=== PATIENT | female | born 1995 | race Hispanic/Latino ===

== ENCOUNTER 2019-12-08 11:12 | Inpatient (IN) | payer BC, OTHER ==
[~2019-12-08] VITALS: Ht 167.6 cm; Wt 175.5 kg
[2019-12-08] MEDS ORDERED: SODIUM CHLORIDE 0.9% 1000ML 1,000 ML IV STA ×2 (11:38→15:34)
[2019-12-08] MEDS ORDERED: KETOROLAC TROMETHAMINE 30 MG/ML VIAL IV STA (11:38)
[2019-12-08] MEDS ORDERED: ONDANSETRON HCL INJ 2MG/ML 2ML 2 MG/ML VIAL IV STA (11:38)
[2019-12-08] MEDS ORDERED: PANTOPRAZOLE 40 MG 10ML VIAL IV STA (11:38)
[2019-12-08] MEDS ORDERED: LIDOCAINE VISC 2% SOLN 15 ML UDC PO ONE ×2 (11:45→15:30)
[2019-12-08] MEDS ORDERED: MAGNESIUM/ALUMINUM/SIMETHICONE 30 ML UDC PO ONE ×2 (11:45→15:30)
[2019-12-08] MEDS ORDERED: BELLADONNA ALK/PHENOBARBITAL 5 ML UDC PO ONE ×2 (11:45→15:30)
--- NOTE | 2019-12-08 11:45 | Emergency Department Note ---
History of Present Illnes History of Present Illness Chief Complaint: Abdominal Complaints History of Present Illness This is a 24 year old female . Historian: Significant Other Arrival Mode: Car Onset (how long ago): day(s) (las night) Timing of current episode: intermittent Progression: worsening Context: recent illness, recent surgery, recent immobilization, recent travel, trauma/injury, new medications, hx of DVT/PE, non-compliance w/ medications, other Relieving factors: none Exacerbating factors: none Treatments prior to arrival: none Past Medical/Family History Physician Review I have reviewed the patient's past medical and family history. Any updates have been documented here. Past Medical History Recent Fever: No Clinical Suspicion of Infectio: No New/Unexplained Change in Ment: No Past Medical History: GERD Other Medical History: SEVERE MORBID OBESITY Past Surgical History: None Social History Smoking Cessation: Never Smoker Alcohol Use: None Any Illegal Drug Use: No TB Exposure/Symptoms: No Physically hurt or threatened: No Family History Family history of heart diseas: No Other Last Tetanus: UNK Any Pre-Existing Lines (PICC,: No Review of Systems Review of Systems Constitutional: no symptoms EENTM: no symptoms Cardiovascular: no symptoms Respiratory: no symptoms Gastrointestinal: abdominal pain, vomiting Genitourinary: no symptoms Musculoskeletal: no symptoms Neurological: no symptoms Psychological: no symptoms Endocrine: no symptoms Hematological/Lymphatic: no symptoms Review of other systems All other systems reviewed and negative. Physical Exam Related Data Allergies: Coded Allergies: No Known Allergies (Unverified , 12/08/19) Triage Vital Signs Vital Signs Date Time Temp Pulse Resp B/P (MAP) Pulse Ox O2 Delivery O2 Flow Rate FiO2 12/08/19 11:35 97.9 90 18 130/90 100 Vital signs reviewed: Yes Physical Exam CONSTITUTIONAL Constitutional: obese HENT HENT: normocephalic, atraumatic, oropharynx clear/moist, nose normal HENT L/R: left ext ear normal, right ext ear normal EYES Eyes: PERRL, conjunctivae normal NECK Neck: ROM normal PULMONARY Pulmonary: effort normal, breath sounds normal CARDIOVASCULAR Cardiovascular: regular rhythm, heart sounds normal, capillary refill normal, normal rate GASTROINTESTINAL Abdominal: soft; nontender (minimal epigastric ruq ttp); bowel sounds normal; left CVA tenderness, right CVA tenderness GENITOURINARY Genitourinary: exam deferred SKIN Skin: warm, dry MUSCULOSKELETAL Musculoskeletal: ROM normal NEUROLOGICAL Neurological: alert, oriented x 3, no gross motor or sensory deficits PSYCHOLOGICAL Psychological: mood/affect normal, judgement normal Results Laboratory Laboratory Laboratory Tests Test 12/08/19 14:09 12/08/19 11:40 12/08/19 11:38 Sodium Level 140 mmol/L (136-145) Potassium Level 3.9 mmol/L (3.5-5.1) Chloride Level 105 mmol/L (98-107) Carbon Dioxide Level 23 mmol/L (22-29) Anion Gap 15.9 mmol/L (8-16) Blood Urea Nitrogen 11 mg/dL (7-26) Creatinine 0.72 mg/dL (0.57-1.11) Estimat Glomerular Filtration Rate > 60 ML/MIN (60-) BUN/Creatinine Ratio 15 (6-25) Glucose Level 136 mg/dL (74-118) Calcium Level 9.6 mg/dL (8.4-10.2) Total Bilirubin 1.9 mg/dL (0.2-1.2) Aspartate Amino Transf (AST/SGOT) 117 IU/L (5-34) Alanine Aminotransferase (ALT/SGPT) 577 IU/L (0-55) Alkaline Phosphatase 135 IU/L (40-150) Total Protein 7.7 g/dL (6.5-8.1) Albumin 3.8 g/dL (3.5-5.0) Globulin 3.9 g/dL (2.3-3.5) Albumin/Globulin Ratio 1.0 (0.8-2.0) Amylase Level 906 U/L (25-125) Lipase 1833 U/L (8-78) Human Chorionic Gonadotropin, Qual Negative (NEGATIVE) White Blood Count 18.84 x10e3/uL (4.8-10.8) Red Blood Count 5.57 x10e6/uL (3.6-5.1) Hemoglobin 16.5 g/dL (12.0-16.0) Hematocrit 49.4 % (34.2-44.1) Mean Corpuscular Volume 88.7 fL (81-99) Mean Corpuscular Hemoglobin 29.6 pg (28-32) Mean Corpuscular Hemoglobin Concent 33.4 g/dL (31-35) Red Cell Distribution Width 13.1 % (11.7-14.4) Platelet Count 301 x10e3/uL (140-360) Neutrophils (%) (Auto) 89.3 % (38.7-80.0) Lymphocytes (%) (Auto) 5.3 % (18.0-39.1) Monocytes (%) (Auto) 4.8 % (4.4-11.3) Eosinophils (%) (Auto) 0.0 % (0.0-6.0) Basophils (%) (Auto) 0.2 % (0.0-1.0) Neutrophils # (Auto) 16.8 (2.1-6.9) Lymphocytes # (Auto) 1.0 (1.0-3.2) Monocytes # (Auto) 0.9 (0.2-0.8) Eosinophils # (Auto) 0.0 (0.0-0.4) Basophils # (Auto) 0.0 (0.0-0.1) Absolute Immature Granulocyte (auto 0.07 x10e3/uL (0-0.1) Urine Color [place] (YELLOW) Urine Clarity Cloudy (CLEAR) Urine pH 5.5 (5 - 7) Urine Specific Summers >=1.030 (1.010-1.025) Urine Protein 1+ (NEGATIVE) Urine Glucose (UA) 1+ (NEGATIVE) Urine Ketones 2+ (NEGATIVE) Urine Blood Negative (NEGATIVE) Urine Nitrite Negative (NEGATIVE) Urine Bilirubin Moderate (NEGATIVE) Urine Urobilinogen 0.2 mg/dL (0.2 - 1) Urine Leukocyte Esterase Negative (NEGATIVE) Urine RBC None /HPF (0-5) Urine WBC 0-5 /HPF (0-5) Urine Epithelial Cells Rare /LPF (NONE) Urine Amorphous Sediment Many (FEW) Urine Bacteria Many /HPF (NONE) Laboratory Tests Test 12/08/19 14:09 12/08/19 11:40 12/08/19 11:38 Sodium Level 140 mmol/L (136-145) Potassium Level 3.9 mmol/L (3.5-5.1) Chloride Level 105 mmol/L (98-107) Carbon Dioxide Level 23 mmol/L (22-29) Anion Gap 15.9 mmol/L (8-16) Blood Urea Nitrogen 11 mg/dL (7-26) Creatinine 0.72 mg/dL (0.57-1.11) Estimat Glomerular Filtration Rate > 60 ML/MIN (60-) BUN/Creatinine Ratio 15 (6-25) Glucose Level 136 mg/dL (74-118) Calcium Level 9.6 mg/dL (8.4-10.2) Total Bilirubin 1.9 mg/dL (0.2-1.2) Aspartate Amino Transf (AST/SGOT) 117 IU/L (5-34) Alanine Aminotransferase (ALT/SGPT) 577 IU/L (0-55) Alkaline Phosphatase 135 IU/L (40-150) Total Protein 7.7 g/dL (6.5-8.1) Albumin 3.8 g/dL (3.5-5.0) Globulin 3.9 g/dL (2.3-3.5) Albumin/Globulin Ratio 1.0 (0.8-2.0) Amylase Level 906 U/L (25-125) Human Chorionic Gonadotropin, Qual Negative (NEGATIVE) White Blood Count 18.84 x10e3/uL (4.8-10.8) Red Blood Count 5.57 x10e6/uL (3.6-5.1) Hemoglobin 16.5 g/dL (12.0-16.0) Hematocrit 49.4 % (34.2-44.1) Mean Corpuscular Volume 88.7 fL (81-99) Mean Corpuscular Hemoglobin 29.6 pg (28-32) Mean Corpuscular Hemoglobin Concent 33.4 g/dL (31-35) Red Cell Distribution Width 13.1 % (11.7-14.4) Platelet Count 301 x10e3/uL (140-360) Neutrophils (%) (Auto) 89.3 % (38.7-80.0) Lymphocytes (%) (Auto) 5.3 % (18.0-39.1) Monocytes (%) (Auto) 4.8 % (4.4-11.3) Eosinophils (%) (Auto) 0.0 % (0.0-6.0) Basophils (%) (Auto) 0.2 % (0.0-1.0) Neutrophils # (Auto) 16.8 (2.1-6.9) Lymphocytes # (Auto) 1.0 (1.0-3.2) Monocytes # (Auto) 0.9 (0.2-0.8) Eosinophils # (Auto) 0.0 (0.0-0.4) Basophils # (Auto) 0.0 (0.0-0.1) Absolute Immature Granulocyte (auto 0.07 x10e3/uL (0-0.1) Urine Color [place] (YELLOW) Urine Clarity Cloudy (CLEAR) Urine pH 5.5 (5 - 7) Urine Specific [place] >=1.030 (1.010-1.025) Urine Protein 1+ (NEGATIVE) Urine Glucose (UA) 1+ (NEGATIVE) Urine Ketones 2+ (NEGATIVE) Urine Blood Negative (NEGATIVE) Urine Nitrite Negative (NEGATIVE) Urine Bilirubin Moderate (NEGATIVE) Urine Urobilinogen 0.2 mg/dL (0.2 - 1) Urine Leukocyte Esterase Negative (NEGATIVE) Urine RBC None /HPF (0-5) Urine WBC 0-5 /HPF (0-5) Urine Epithelial Cells Rare /LPF (NONE) Urine Amorphous Sediment Many (FEW) Urine Bacteria Many /HPF (NONE) Lab results reviewed: Yes Imaging Impressions IMPRESSION: No acute cardiopulmonary process identified. Signed by: Dr. Jeffry Meadows MD on 12/08/2019 2:33 PM IMPRESSION: Cholelithiasis without sonographic evidence for acute cholecystitis. Signed by: Dr. Jeffry Meadows MD on 12/08/2019 1:00 PM IMPRESSION: 1. CT findings suggestive of acute pancreatitis including edematous appearing pancreas with adjacent inflammatory change. Recommend correlation with symptomatology and laboratory evaluation. No evidence for organized fluid collection or abnormal enhancement to suggest necrosis. 2. Cholelithiasis without evidence for acute cholecystitis. Signed by: Dr. Jeffry Meadows MD on 12/08/2019 5:10 PM Dictated By: JEFFRY MEADOWS MD 171 Transcribed By: MATTHIAS on 12/08/19 1710 Critical Care Time Subsequent provider I assumed direction of critical care for this patient from another provider of my specialty. Assessment & Plan Reassessment Reassessment time: 11:44 Reassessment 24y f presented to ed c/o ruq pain sent from md office for r/o gb stone- lab us ordered - pt medicated w/ zofran ns protonix toradol gi cocktail Assessment & Plan Final Impression: (1) Pancreatitis, gallstone Assessment & Plan discussed lab us results plan of care and need for admit spoke w/ Dr Carpenter will admit spoke w/ Dr Rivera / Inge Montelongo will consult Depart Disposition: ADMITTED Last Vital Signs Date Time Temp Pulse Resp B/P (MAP) Pulse Ox O2 Delivery O2 Flow Rate FiO2 12/08/19 11:35 97.9 90 18 130/90 100 NIKKY PIKE Dec 08, 2019 11:45
[2019-12-08 12:22] LABS: BASOPHILS % 0.2 % (0.0-1.0); HEMATOCRIT 49.4 % (34.2-44.1); HEMOGLOBIN 16.5 g/dL (12.0-16.0); LYMPHOCYTES % 5.3 % (18.0-39.1); MEAN CORPUSCULAR HEMOGLOBIN 29.6 pg (28-32); MEAN CORPUSCULAR HGB CONC 33.4 g/dL (31-35); MEAN CORPUSCULAR VOLUME 88.7 fL (81-99); MONOCYTES # (AUTO) 0.9 (0.2-0.8); MONOCYTES % 4.8 % (4.4-11.3); NEUTROPHILS # (AUTO) 16.8 (2.1-6.9); NEUTROPHILS % 89.3 % (38.7-80.0); PLATELET COUNT 301 x10e3/uL (140-360); RED BLOOD COUNT 5.57 x10e6/uL (3.6-5.1); RED CELL DISTRIBUTION WIDTH 13.1 % (11.7-14.4)
[2019-12-08 12:33] LABS: CLARITY,URINE CLOUDY (CLEAR); COLOR,URINE ORANGE (YELLOW)
[2019-12-08 12:34] LABS: LEUKOCYTE ESTERASE ,URINE NEGATIVE (NEGATIVE); NITRITE,URINE NEGATIVE (NEGATIVE); PROTEIN,URINE DIPSTICK 1+ (NEGATIVE)
[2019-12-08 12:35] LABS: BILIRUBIN,URINE MODERATE (NEGATIVE); KETONES,URINE 2+ (NEGATIVE); URINE UROBILINOGEN 0.2 mg/dL (0.2 - 1)
[2019-12-08 12:46] LABS: AMORPHOUS SEDIMENT,URINE MANY (FEW); BACTERIA,URINE MANY /HPF; EPITHELIAL CELLS,URINE RARE /LPF; WBC,URINE (MAN) 0-5 /HPF (0-5)
--- NOTE | 2019-12-08 13:03 | Diagnostic Imaging Report ---
EXAM: US GALLBLADDER DATE: 12/08/2019 12:21 PM INDICATION: Abdominal pain COMPARISON: None FINDINGS: The pancreas is partially obscured by bowel gas. The visualized portion appears unremarkable. The liver is normal in size measuring 15.3 cm in length. Hepatic echogenicity is within normal limits. The main portal vein is patent with antegrade flow and diameter of 0.8 cm, within normal limits. Multiple shadowing stones are identified within the gallbladder, limiting sonographic evaluation. No obvious gallbladder wall thickening or pericholecystic fluid is appreciated. There is no intra or extra hepatic biliary ductal dilatation. The common bile duct measures 4 mm. Sonographic Parra's sign is negative. The right kidney is normal in size measuring 9.5 cm in length with normal cortical thickness/echogenicity. There is no evidence for solid renal mass, hydronephrosis, or shadowing calculi within the right kidney. The visualized portions the IVC and aorta are within normal limits. There is no ascites visualized within the right upper quadrant. IMPRESSION: Cholelithiasis without sonographic evidence for acute cholecystitis. Signed by: Dr. Jeffry Meadows MD on 12/08/2019 1:00 PM
--- NOTE | 2019-12-08 14:37 | Diagnostic Imaging Report ---
EXAM: CHEST SINGLE (NOT PORTABLE) DATE: 12/08/2019 2:15 PM INDICATION: Abdominal pain COMPARISON: None FINDINGS: The trachea is midline. The lungs are symmetrically expanded without evidence for large focal consolidation, pneumothorax, or significant pleural effusion. The cardiomediastinal silhouette and pulmonary vasculature are within normal limits. No acute osseous abnormality is identified. The surrounding soft tissues are unremarkable. IMPRESSION: No acute cardiopulmonary process identified. Signed by: Dr. Jeffry Meadows MD on 12/08/2019 2:33 PM
[2019-12-08 14:51] LABS: ALANINE AMINOTRANSFERASE 577 IU/L (0-55); ALBUMIN 3.8 g/dL (3.5-5.0); ALKALINE PHOSPHATASE 135 IU/L (40-150); AMYLASE 906 U/L (25-125); ANION GAP 15.9 mmol/L (8-16); BLOOD UREA NITROGEN 11 mg/dL (7-26); BUN/CREATININE RATIO 15 (6-25); CALCIUM 9.6 mg/dL (8.4-10.2); CARBON DIOXIDE 23 mmol/L (22-29); CHLORIDE 105 mmol/L (98-107); CREATININE, SERUM 0.72 mg/dL (0.57-1.11); EST GLOMERULAR FILTRATION RATE > 60 ML/MIN (60-); GLUCOSE 136 mg/dL (74-118); POTASSIUM 3.9 mmol/L (3.5-5.1); SODIUM 140 mmol/L (136-145)
--- NOTE | 2019-12-08 14:54 | NUR ---
PATIENT TO ROOM 9
[2019-12-08] MEDS ORDERED: SODIUM CHLORIDE 0.9% 1000ML 1,000 ML IV ONE (15:30)
[2019-12-08] MEDS ORDERED: MORPHINE SULFATE 2 MG/ML SYR 1ML IV PRN (15:30)
[2019-12-08] MEDS ORDERED: SODIUM CHLORIDE 0.9% 1000ML 1,000 ML IV SCH (15:30)
[2019-12-08] MEDS ORDERED: PIPER-TAZ 3.375 GM 50 ML IV ONE (15:30)
[2019-12-08] MEDS ORDERED: PANTOPRAZOLE 40 MG 10ML VIAL IV ONE (15:30)
[2019-12-08] MEDS ORDERED: KETOROLAC TROMETHAMINE 30 MG/ML VIAL IV ONE (15:30)
[2019-12-08] MEDS ORDERED: ONDANSETRON HCL INJ 2MG/ML 2ML 2 MG/ML VIAL IV ONE (15:30)
[2019-12-08 16:30] LABS: LIPASE 1833 U/L (8-78)
[2019-12-08] MEDS ORDERED: PIPER-TAZ 3.375 GM 50 ML ONE (16:58)
[2019-12-08] MEDS ORDERED: SODIUM CHLORIDE 0.9% 50ML 50 ML ONE (17:13)
[2019-12-08] MEDS ORDERED: IOPAMIDOL 370 MG/ML 200 ML INFUS..BTL INJ ONE (17:13)
--- NOTE | 2019-12-08 17:13 | Diagnostic Imaging Report ---
CT of the abdomen and pelvis, with contrast. History: Abdominal pain. Comparison: Gallbladder ultrasound from earlier 12/08/2019. Technique: Multidetector CT scanning of the abdomen and pelvis was performed from the level of the lung bases to the inferior pubic rami after intravenous administration of contrast. Coronal and sagittal multiplanar reformations were obtained. RADIATION DOSE: Total DLP: 1366.97 mGy*cm Dose modulation, iterative reconstruction, and/or weight based adjustment of the mA/kV was utilized to reduce the radiation dose to as low as reasonably achievable. FINDINGS: Please note that examination is limited secondary the patient's body habitus. The visualized lungs are clear. The imaged portion of the heart demonstrates no significant abnormalities. The liver is normal in size and attenuation. The gallbladder appears contracted and contains calcified stones. There is no evidence for gallbladder wall thickening or pericholecystic fluid. There is no biliary ductal dilatation. The spleen and bilateral adrenal glands are unremarkable. The pancreas appears prominent with adjacent fat stranding changes seen in the setting of acute pancreatitis. There is no evidence for organized fluid collection or abnormal enhancement to suggest necrosis. No pancreatic ductal dilatation appreciated. Upper normal sized mesenteric lymph nodes are noted within the upper abdomen, likely reactive. The kidneys are normal in size and location and enhance symmetrically. There is no evidence for hydronephrosis. The ureters are normal course and caliber. The urinary bladder demonstrates no significant abnormalities. The uterus and adnexa are grossly unremarkable. The abdominal aorta is normal course and caliber. The IVC is unremarkable. Please note evaluation the bowel is limited without the use of enteric contrast material. The stomach is unremarkable. There is mild wall thickening of the duodenum adjacent to the pancreas which is likely reactive. The remaining visualized loops of small and large bowel demonstrate no evidence of obstruction or inflammation. There is no ascites or intraperitoneal free air. No abnormally enlarged lymph nodes are identified within the abdomen and pelvis. The osseous structures demonstrate no evidence for acute fracture or destructive process. The extraperitoneal soft tissues are unremarkable. IMPRESSION: 1. CT findings suggestive of acute pancreatitis including edematous appearing pancreas with adjacent inflammatory change. Recommend correlation with symptomatology and laboratory evaluation. No evidence for organized fluid collection or abnormal enhancement to suggest necrosis. 2. Cholelithiasis without evidence for acute cholecystitis. Signed by: Dr. Jeffry Meadows MD on 12/08/2019 5:10 PM
--- OUTSIDE RECORDS SUMMARY | 2019-12-08 17:18 | XMS REPORT | Continuity of Care Document ---
Author Author [facility] t Organization [facility] Address [address] [place] [address] [place] [id number] Phone Unavailable Care Team Providers Care Step Down Nurse Name Role Phone NIKKY PIKE MD Attjazmin Unavailable ABHIJEET FRANCISCO Unavailable Problems This patient has no known problems. Allergies, Adverse Reactions, Alerts This patient has no known allergies or adverse reactions. Medications This patient has no known medications. Procedures This patient has no known procedures. Results Test Description Test Time Test Comments Results Result Comments Source CT ABDOMEN/PELVIS W 2019-12-08 17:00:[address] [address] Patient Name: ALVIN HARGROVE MR #: [id number] : 1995 Age/Sex: 24/F Req #: [id number] Adm Physician: Ordered by: NIKKY PIKE MD, MD Report #: [id number] Location: ER Room/Bed: Procedure: [id number] CT/CT ABDOMEN/PELVIS W Exam Date: 12/08/19 Exam Time: 1640 REPORT STATUS: Signed CT of the abdomen and pelvis, with contrast. History: Abdominal pain. Comparison: Gallbladder ultrasound from earlier 12/08/2019. Technique: Multidetector CT scanning of the abdomen and pelvis was performed from the level of the lung bases to the i nferior pubic rami after intravenous administration of contrast. Coronal and sagittal multiplanar reformations were obtained. RADIATION DOSE: Total DLP: 1366.97 mGy*cm Dose modulation, iterative reconstruction, and/or weight based adjustment of the mA/kV was utilized to reduce the radiation dose to as low as reasonably achievable. FINDINGS: Please note that examination is limited secondary the patient's body habitus. The visualized lungs are clear. The imaged portion of the heart demonstrates no significant abnormalities. The liver is normal in size and attenuation. The gallbladder appears contracted and contains calcified stones. There is no evidence for gallbladder wall thickening or pericholecystic fluid. There is no biliary ductal dilatation. The spleen and bilateral adrenal glands are unremarkable. The pancreas appears prominent with adjacent fat stranding changes seen in the setting of acute pancreatitis. There is no evidence for organized fluid collection or abnormal enhancement to suggest necrosis. No pancreatic ductal dilatation appreciated. Upper normal sized mesenteric lymph nodes are noted within the upper abdomen, likely reactive. The kidneys are normal in size and location and enhance symmetrically. There is no evidence for hydronephrosis. The ureters are normal course and caliber. The urinary bladder demonstrates no significant abnormalities. The uterus and adnexa are grossly unremarkable. The abdominal aorta is normal course and caliber. The IVC is unremarkable. Please note evaluation the bowel is limited without the use of enteric contrast material. The stomach is unremarkable. There is mild wall thickening of the duodenum adjacent to the pancreas which is likely reactive. The remaining visualized loops of small and large bowel demonstrate no evidence of obstruction or inflammation. There is no ascites or intraperitoneal free air. No abnormally enlarged lymph nodes are identified within the abdomen and pelvis. The osseous structures demonstrate no evidence for acute fracture or destructive process. The extraperitoneal soft tissues are unremarkable. IMPRESSION: 1. CT findings suggestive of acute pancreatitis including edematous appearing pancreas with adjacent inflammatory change. Recommend correlation with symptomatology and laboratory evaluation. No evidence for organized fluid collection or abnormal enhancement to suggest necrosis. 2. Cholelithiasis without evidence for acute cholecystitis. Signed by: Dr. Jeffry Meadows MD on 12/08/2019 5:10 PM Dictated By: JEFFRY MEADOWS MD 09 Transcribed By: MATTHIAS on 12/08/191709 COPY TO: NIKKY PIKE CHEST SINGLE (NOT PORTABLE) 2019-12-08 14:33:00 [facility] [address] [address] Patient Name: ALVIN HARGROVE MR #: [id number] : 1995 Age/Sex: 24/F Req #: [id number] Adm Physician: Ordered by: NIKKY PIKE MD, MD Report #: [id number] Location: ER Room/Bed: Procedure: [id number] DX/CHEST SINGLE (NOT PORTABLE) Exam Date: Exam Time: REPORT STATUS: Signed EXAM: CHEST SINGLE (NOT PORTABLE) DATE: 12/08/2019 2:15 PM INDICATION: Abdominal pain COMPARISON: None FINDINGS: The trachea is midline. The lungs are symmetrically expanded without evidence for large focal consolidation, pneumothorax, or significant pleural effusion. The cardiomediastinal silhouette and pulmonary vasculature are within normal limits. No acute osseous abnormality is identified. The surrounding soft tissues are unremarkable. IMPRESSION: No acute cardiopulmonary process identified. Signed by: Dr. Jeffry Meadows MD on 12/08/2019 2:33 PM Dictated By: JEFFRY MEADOWS MD 1433 Transcribed By: MATTHIAS on 12/08/19 1433 COPY TO: NIKKY PIKE GALLBLADDER 2019-12-08 12:56:00 [facility] [address] [address] Patient Name: ALVIN HARGROVE MR #: [id number] : 1995 Age/Sex: 24/F Req #: [id number] Adm Physician: Ordered by: NIKKY PIKE MD, MD Report #: [id number] Location: ER Room/Bed: Procedure: [id number] US/US GALLBLADDER Exam Date: Exam Time: REPORT STATUS: Signed EXAM: US GALLBLADDER DATE: 12/08/2019 12:21 PM INDICATION: Abdominal pain COMPARISON: None FINDINGS: The pancreas is partially obscured by bowel gas. The visualized portion appears unremarkable. The liver is normal in size measuring 15.3 cm in length. Hepatic echogenicity is within normal limits. The main portal vein is patent with antegrade flow and diameter of 0.8 cm, within normal limits. Multiple shadowing stones are identified within the gallbladder, limiting sonographic evaluation. No obvious gallbladder wall thickening or pericholecystic fluid is appreciated. There is no intra or extra hepatic biliary ductal dilatation. The common bile duct measures 4 mm. Sonographic Parra's sign is negative. The right kidney is normal in size measuring 9.5 cm in length with normal cortical thickness/echogenicity. There is no evidence for solid renal mass, hydronephrosis, or shadowing calculi within the right kidney. The visualized portions the IVC and aorta are within normal limits. There is no ascites visualized within the right upper quadrant. IMPRESSION: Cholelithiasis without sonographic evidence for acute cholecystitis. Signed by: Dr. Jeffry Meadows MD on 12/08/2019 1:00 PM Dictated By: JEFFRY MEADOWS MD 1300 Transcribed By: MATTHIAS on 12/08/19 1300 COPY TO: NIKKY PIKE
[2019-12-08] MEDS ORDERED: PANTOPRAZOLE SO40 MG PO (18:22)
[2019-12-08 18:25] VITALS: BP 147/99
[2019-12-08 18:26] VITALS: BP 147/99
--- NOTE | 2019-12-08 18:36 | NUR ---
patient received via WC. see admit assess. sinus rhythm on monitor. vitals stable with no distress at time of admit.
[2019-12-08 20:25] VITALS: BP 144/81
[2019-12-08 21:11] VITALS: BP 144/81
--- NOTE | 2019-12-08 21:36 | NUR ---
RECEIVED PT IN BED AOX3 .DENIES PAIN .PT IS NPO NS RT AC 20G NS AT 125 CC/HR .CALL LIGHT WITH IN REACH .CONTINUE TO MONITOR
[2019-12-08] MEDS: FAMOTIDINE 20 MG/2 ML VIAL IV SCH (21:59)
[2019-12-08] MEDS ORDERED: PIPER-TAZ 3.375 GM / NS 50ML IV SCH (22:00)
[2019-12-08] MEDS: PIPER-TAZ 3.375 GM 50 ML IV SCH (22:00)
[2019-12-08] MEDS: LACTATED RINGER'S 1,000 ML INJ SCH (23:00)
[2019-12-09] VITALS (9 sets, daily range): BP systolic 108–154; BP diastolic 63–85
[2019-12-09] MEDS: ONDANSETRON HCL INJ 2MG/ML 2ML 2 MG/ML VIAL IV PRN ×2 (04:58→20:10)
[2019-12-09] MEDS: MORPHINE SULFATE INJ 4 MG/ML INJ 1ML IV PRN ×2 (04:58→20:10)
[2019-12-09] MEDS: LACTATED RINGER'S 1,000 ML INJ SCH ×5 (04:58→20:10)
--- NOTE | 2019-12-09 05:02 | NUR ---
PT C/O PAIN AND GIVEN ORDERED PAIN MEDICATION .CONTINUE TO MONITOR
[2019-12-09 05:28] LABS: BASOPHILS % 0.1 % (0.0-1.0); EOSINOPHILS % 0.2 % (0.0-6.0); HEMATOCRIT 42.9 % (34.2-44.1); HEMOGLOBIN 13.9 g/dL (12.0-16.0); LYMPHOCYTES # (AUTO) 1.3 (1.0-3.2); LYMPHOCYTES % 8.3 % (18.0-39.1); MEAN CORPUSCULAR HEMOGLOBIN 29.6 pg (28-32); MEAN CORPUSCULAR HGB CONC 32.4 g/dL (31-35); MEAN CORPUSCULAR VOLUME 91.5 fL (81-99); MONOCYTES % 6.5 % (4.4-11.3); NEUTROPHILS % 84.4 % (38.7-80.0); PLATELET COUNT 245 x10e3/uL (140-360); RED BLOOD COUNT 4.69 x10e6/uL (3.6-5.1); RED CELL DISTRIBUTION WIDTH 13.2 % (11.7-14.4)
[2019-12-09 05:51] LABS: ALANINE AMINOTRANSFERASE 373 IU/L (0-55); ALBUMIN 3.2 g/dL (3.5-5.0); ANION GAP 12.6 mmol/L (8-16); BLOOD UREA NITROGEN 10 mg/dL (7-26); BUN/CREATININE RATIO 15 (6-25); CALCIUM 8.8 mg/dL (8.4-10.2); CARBON DIOXIDE 23 mmol/L (22-29); CHLORIDE 109 mmol/L (98-107); CREATININE, SERUM 0.67 mg/dL (0.57-1.11); EST GLOMERULAR FILTRATION RATE > 60 ML/MIN (60-); GLUCOSE 112 mg/dL (74-118); POTASSIUM 3.6 mmol/L (3.5-5.1); SODIUM 141 mmol/L (136-145)
[2019-12-09 05:52] LABS: ALKALINE PHOSPHATASE 102 IU/L (40-150); LIPASE 601 U/L (8-78)
[2019-12-09] MEDS: PIPER-TAZ 3.375 GM 50 ML IV SCH ×3 (06:00→21:34)
--- NOTE | 2019-12-09 07:08 | NUR ---
BEDSIDE REPORT GIVEN TO THE ONCOMING NURSE
[2019-12-09] MEDS: FAMOTIDINE 20 MG/2 ML VIAL IV SCH ×2 (08:21→16:34)
--- NOTE | 2019-12-09 11:25 | NUR ---
Pt. expressed no spiritual or emotional concerns at this time. Pt's dad at bedside. Legal Office Administrator provided hospitality and information on how to reach hack driver, if needed. No need to follow at this time. JESSICA THORNTON Legal Office Administrator Spiritual Care Department O: [phone]
--- NOTE | 2019-12-09 14:43 | History and Physical ---
PRIMARY CARE PHYSICIAN: Dr. Bebeto Del Rosario. CONSULTANTS: 1. Dr. Luis Montelongo. 2. Dr. Oleg Rivera. CHIEF COMPLAINT: Abdominal pain, acute gallstone pancreatitis. HISTORY OF PRESENT ILLNESS: The patient is a 24-year-old female, morbidly obese, came in with gallstone induced pancreatitis. The patient is otherwise stable. Abdominal pain improved with the supportive measures. IV fluids. PAST MEDICAL HISTORY: Obesity and reflux. PAST SURGICAL HISTORY: Noncontributory. SOCIAL HISTORY: The patient does not smoke or use alcohol. No recreational drugs. ALLERGIES: NO KNOWN ALLERGIES. HOME MEDICATION: Pantoprazole. PHYSICAL EXAMINATION: VITAL SIGNS: Temperature is 97, blood pressure 135/85, pulse rate 113, respirations 20. GENERAL: The patient is not in acute distress. She is awake. HEENT: Normocephalic, atraumatic, anicteric. NECK: Supple grossly. PULMONARY: Clear. CARDIOVASCULAR: Tachycardia. ABDOMEN: Morbidly obese. Tenderness. No rebound or guarding. EXTREMITIES: No cyanosis or edema. NEUROLOGIC: No focal deficit. LABORATORY DATA: WBC is 18.8, hemoglobin 15.5, hematocrit 49, and platelets is 305. Chemistry; sodium 140, potassium 3.9, chloride 105, bicarb 23, BUN 11, creatinine 0.7, glucose 136. AST is 117 down to 63, ALT 577 down to 373, amylase is 906, lipase is [address] scan of the abdomen and pelvis consistent with acute pancreatitis with the patient has gallstones. IMPRESSION: 1. Gallstone pancreatitis. Enzyme is trending down. 2. Gallbladder stone. 3. Morbid obesity. PLAN: Continue with current management. IV fluid, antibiotics. We will follow up on the patient's enzyme. The patient will need surgical intervention, gallbladder surgery at a later date. In the meantime, continue with IV fluids per Dr. Luis Montelongo recommendation. MD DARIO Waddell/MODL /[id number]
[2019-12-10] VITALS (10 sets, daily range): BP systolic 101–128; BP diastolic 67–78
[2019-12-10] MEDS: LACTATED RINGER'S 1,000 ML INJ SCH ×3 (00:30→07:00)
[2019-12-10] MEDS: PIPER-TAZ 3.375 GM 50 ML IV SCH ×3 (05:42→21:19)
[2019-12-10 05:55] LABS: BASOPHILS # (AUTO) 0.1 (0.0-0.1); BASOPHILS % 0.5 % (0.0-1.0); EOSINOPHILS # (AUTO) 0.2 (0.0-0.4); EOSINOPHILS % 1.2 % (0.0-6.0); HEMOGLOBIN 12.4 g/dL (12.0-16.0); LYMPHOCYTES # (AUTO) 1.7 (1.0-3.2); LYMPHOCYTES % 12.8 % (18.0-39.1); MEAN CORPUSCULAR HGB CONC 31.8 g/dL (31-35); MEAN CORPUSCULAR VOLUME 91.1 fL (81-99); MONOCYTES # (AUTO) 1.1 (0.2-0.8); MONOCYTES % 8.2 % (4.4-11.3); NEUTROPHILS % 76.8 % (38.7-80.0); PLATELET COUNT 209 x10e3/uL (140-360); RED BLOOD COUNT 4.28 x10e6/uL (3.6-5.1)
[2019-12-10 06:19] LABS: ALANINE AMINOTRANSFERASE 217 IU/L (0-55); ALBUMIN 2.6 g/dL (3.5-5.0); ALBUMIN/GLOBULIN RATIO 0.8 (0.8-2.0); ALKALINE PHOSPHATASE 76 IU/L (40-150); ANION GAP 13.6 mmol/L (8-16); BLOOD UREA NITROGEN 7 mg/dL (7-26); BUN/CREATININE RATIO 11 (6-25); CALCIUM 8.7 mg/dL (8.4-10.2); CARBON DIOXIDE 25 mmol/L (22-29); CHLORIDE 106 mmol/L (98-107); CREATININE, SERUM 0.61 mg/dL (0.57-1.11); EST GLOMERULAR FILTRATION RATE > 60 ML/MIN (60-); GLUCOSE 90 mg/dL (74-118); LIPASE 199 U/L (8-78); POTASSIUM 3.6 mmol/L (3.5-5.1); SODIUM 141 mmol/L (136-145)
--- NOTE | 2019-12-10 07:05 | NUR ---
RCD PT AT BED PT IS ALERT AND ORIENTED RESTING ON BED IV PATENT AND RUNNING 200 ML /HR BED LOW AND LOCKED CALL LIGHT IN REACH
[2019-12-10] MEDS: MORPHINE SULFATE INJ 4 MG/ML INJ 1ML IV PRN (08:30)
[2019-12-10] MEDS: ONDANSETRON HCL INJ 2MG/ML 2ML 2 MG/ML VIAL IV PRN (08:30)
[2019-12-10] MEDS: FAMOTIDINE 20 MG/2 ML VIAL IV SCH ×2 (09:00→17:00)
--- NOTE | 2019-12-10 10:46 | NUR ---
PT WENT TO PROCEDURE IN SAFE CONDITION
[2019-12-10] MEDS ORDERED: IOPAMIDOL 300MG/ML 50ML INFUS..BTL IV ONE (11:49)
[2019-12-10] MEDS ORDERED: BUPIVACAINE 0.25%/EPI 30ML SDV INJ ONE (11:49)
[2019-12-10] MEDS ORDERED: ACETAMINOPHEN 1000 MG/100 ML IV PRN (14:00)
[2019-12-10] MEDS ORDERED: ONDANSETRON HCL INJ 2MG/ML 2ML 2 MG/ML VIAL ONE ×2 (14:09→18:46)
[2019-12-10] MEDS ORDERED: METOCLOPRAMIDE HCL 10 MG/2ML VIAL ONE (14:09)
--- NOTE | 2019-12-10 14:20 | NUR ---
PT BACK AFTER PROCEDURE PT IS ALERT AND ORIENTED VITALS CHECKED PT RESTING ON BED VITALS CHECKED NO SIGNS OF ANY BLEEDING ON SURGICAL SITE 5 SITES THERE ,PT ON SCDS ON BOTH LEGS BED LOW AND LOCKED CALL LIGHT IN REACH
[2019-12-10] MEDS: DEXTROSE 5%/LACTATED RINGERS 1,000 ML IV SCH ×2 (14:30→21:19)
--- NOTE | 2019-12-10 15:49 | Operative Report ---
DATE OF PROCEDURE: 12/10/2019 SURGEON: Oleg Rivera MD PREOPERATIVE DIAGNOSES: Cholecystitis, cholelithiasis, and gallstone pancreatitis. POSTOPERATIVE DIAGNOSIS: Cholecystitis, cholelithiasis, and gallstone pancreatitis. OPERATION PERFORMED: Laparoscopic cholecystectomy. INSIDE SALES EXECUTIVE: DONTE Barron. ANESTHESIA: General endotracheal. COMPLICATIONS: None. ESTIMATED BLOOD LOSS: Minimal. DESCRIPTION OF PROCEDURE: With the patient lying in bed in the supine position under good general endotracheal anesthesia, the abdomen was prepped with Betadine solution and draped in the usual manner. A Veress needle was introduced into the right upper quadrant and pneumoperitoneum was established. A long 5 mm trocar was placed in the right subcostal region due to the patient's morbid obesity and a 5 mm video laparoscope was placed into the intraabdominal cavity under direct vision. An 11 mm trocar was placed in the right paraumbilical region and a 10 mm video laparoscope was placed into the intraabdominal cavity. Under direct vision, two more 5 mm trocars were placed in the right subcostal region, and extra 5 mm trocar was placed in the left upper abdomen, noted to be able to retract rather redundant intraabdominal contents due to the patient's severe morbid obesity. She has a BMI of 65. Laparoscopy at this point, revealed some fatty infiltration of the liver, revealed the gallbladder to have multiple adhesions, it was thick walled and contained multiple stones. The rest of the abdominal exploration was within normal limits. The adhesions of the gallbladder were then slowly and carefully taken down. The peritoneum overlying the neck of the gallbladder was then opened. The cystic duct was identified. The cystic duct was followed to its junction with the common duct. The cystic duct was then circumferentially dissected. We had initially intended to do a cholangiogram on this patient due to her severe obesity, it was technically not possible to do a cholangiogram, and so we decided since her pancreatitis had resolved to leave that alone if she has any further symptoms. She will need to have perhaps an ERCP as she is too big to fit in the MRI machine for an MRCP. The cystic duct was then doubly clipped and divided the cystic artery, had an anterior and a posterior branch and both of these were individually clipped and divided. The gallbladder was then slowly and carefully taken off the liver bed using the cautery scissors and perfect hemostasis was ascertained. The gallbladder was placed in a pouch and removed through the periumbilical incision. Video laparoscopy was then again carried out, the liver bed was found to be perfectly dry. All of the excess fluid was aspirated. The pneumoperitoneum was evacuated and all the trocars were removed under direct vision. The midline fascia was not closed as the fascia could not be visualized in the periumbilical region due to the patient's morbid obesity. Subcutaneous tissue was approximated with 3-0 Vicryl and all wounds were closed with subcuticular 5-0 Vicryl. Benzoin, Steri-Strips, and Band-Aids were applied. The sponge, lap, needle counts were correct. The patient tolerated the procedure well and returned to the recovery room in stable condition. MD SHAHZAD Avila/FUNMILAYO /[id number]
--- NOTE | 2019-12-10 18:40 | NUR ---
PT RESTING ON BED BED SIDE REPORT GIVEN TO ONCOMING NURSE
[2019-12-10] MEDS ORDERED: SUCCINYLCHOLINE CHLORIDE 20 MG/ML 10ML VIAL ONE (18:46)
[2019-12-10] MEDS ORDERED: PROPOFOL IV EMULSION 10 MG/ML 20 ML VIAL ONE (18:46)
[2019-12-10] MEDS ORDERED: LIDOCAINE HCL 2% LOCAL INJ 5 ML SDV VIAL INJ ONE (18:46)
[2019-12-10] MEDS ORDERED: DESFLURANE 240 ML BTL INH ONE (18:46)
[2019-12-10] MEDS ORDERED: ATROPINE SULFATE 1 MG/ML VIAL ONE (18:46)
[2019-12-10] MEDS ORDERED: KETOROLAC TROMETHAMINE 30 MG/ML VIAL ONE (18:46)
[2019-12-10] MEDS ORDERED: ROCURONIUM BROMIDE 10 MG/ML 5ML VIAL IV ONE (18:46)
[2019-12-10] MEDS ORDERED: NEOSTIGMINE 1 MG/ML 10ML VIAL ONE (18:46)
[2019-12-10] MEDS ORDERED: DEXAMETHASONE SOD PHOS INJ 4 MG/ML VIAL ONE (18:46)
--- NOTE | 2019-12-10 19:10 | NUR ---
RECEIVED THE PATIENT IN REPORT.LYEING IN THE BED.STABLE CONDITION.
--- NOTE | 2019-12-10 21:10 | NUR ---
Assessment done.no resp.distress.5 trochar sites to abdomen is covered with band aid.iv fluid running.tolerates the diet.voided.bed locked and in lowest position.phone and call light within reach.instructed to call for assistance as needed.
[2019-12-11] MEDS: HYDROCODONE/APAP 7.5MG-325MG 1 EA TAB PO PRN ×2 (00:53→09:11)
[2019-12-11 05:33] VITALS: BP 110/70
[2019-12-11] MEDS: PIPER-TAZ 3.375 GM 50 ML IV SCH ×2 (05:46→14:13)
[2019-12-11] MEDS: DEXTROSE 5%/LACTATED RINGERS 1,000 ML IV SCH ×2 (05:46→08:54)
[2019-12-11 06:07] LABS: BASOPHILS % 0.3 % (0.0-1.0); EOSINOPHILS # (AUTO) 0.1 (0.0-0.4); EOSINOPHILS % 0.5 % (0.0-6.0); HEMATOCRIT 35.4 % (34.2-44.1); HEMOGLOBIN 11.4 g/dL (12.0-16.0); LYMPHOCYTES # (AUTO) 1.6 (1.0-3.2); LYMPHOCYTES % 15.6 % (18.0-39.1); MEAN CORPUSCULAR HEMOGLOBIN 29.3 pg (28-32); MEAN CORPUSCULAR HGB CONC 32.2 g/dL (31-35); MONOCYTES # (AUTO) 0.7 (0.2-0.8); MONOCYTES % 6.6 % (4.4-11.3); NEUTROPHILS # (AUTO) 7.8 (2.1-6.9); NEUTROPHILS % 76.5 % (38.7-80.0); PLATELET COUNT 223 x10e3/uL (140-360); RED BLOOD COUNT 3.89 x10e6/uL (3.6-5.1); RED CELL DISTRIBUTION WIDTH 12.7 % (11.7-14.4)
[2019-12-11 06:46] LABS: ALANINE AMINOTRANSFERASE 148 IU/L (0-55); ALBUMIN 2.4 g/dL (3.5-5.0); ALBUMIN/GLOBULIN RATIO 0.7 (0.8-2.0); ALKALINE PHOSPHATASE 68 IU/L (40-150); AMYLASE 101 U/L (25-125); ANION GAP 13.1 mmol/L (8-16); BLOOD UREA NITROGEN 5 mg/dL (7-26); BUN/CREATININE RATIO 8 (6-25); CALCIUM 8.7 mg/dL (8.4-10.2); CARBON DIOXIDE 25 mmol/L (22-29); CHLORIDE 106 mmol/L (98-107); CREATININE, SERUM 0.63 mg/dL (0.57-1.11); EST GLOMERULAR FILTRATION RATE > 60 ML/MIN (60-); GLUCOSE 101 mg/dL (74-118); POTASSIUM 3.1 mmol/L (3.5-5.1); SODIUM 141 mmol/L (136-145)
--- NOTE | 2019-12-11 07:00 | NUR ---
BED SIDE SHIFT REPORT GIVEN TO ONCOMING RN.STABLE CONDITION.
--- NOTE | 2019-12-11 07:00 | NUR ---
BEDSIDE SHIFT REPORT RECEIVED FROM POOL ATTENDANT RN. PT DENIES NEEDS AT THIS TIME.
[2019-12-11 08:03] VITALS: BP 118/79
[2019-12-11] MEDS: FAMOTIDINE 20 MG/2 ML VIAL IV SCH ×2 (08:54→16:49)
[2019-12-11 08:55] VITALS: BP 118/79
[2019-12-11] MEDS ORDERED: POTASSIUM CHLORIDE 10MEQ EA PO SCH (10:30)
[2019-12-11 11:57] VITALS: BP 106/73
[2019-12-11 16:10] VITALS: BP 121/76
--- NOTE | 2019-12-11 18:51 | NUR ---
DR. JARVIS CLEARED PT FOR DISCHARGE HOME.
[2019-12-11 20:00] VITALS: BP 133/83
--- NOTE | 2019-12-11 20:00 | NUR ---
PT DISCHARGED HOME SAFELY WITH FAMILY MEMBER. TELEMETRY AND IV REMOVED, TIP INTACT. DRESSING APPLIED. RX GIVEN. DISCHARGE INSTRUCTIONS GIVEN AND PATIENT VERBALIZED UNDERSTANDING. PT ESCORTED VIA WHEEL CHAIR WITH THE TECH TO THE PRIVATE AUTO AT THE FRONT ENTRANCE. PT DENIED FURTHER NEEDS.
--- NOTE | 2019-12-12 04:26 | Discharge Summary ---
PRIMARY CARE PHYSICIAN: Bebeto Del Rosario MD. CONSULTANTS: 1. Luis Montelongo MD. 2. Oleg Rivera MD. FINAL DIAGNOSES: 1. Gallstone induced acute pancreatitis. 2. Status post laparoscopic cholecystectomy done on December 10, 2019. 3. Morbid obesity. 4. Leukocytosis, resolved. SUMMARY: The patient is a 24-year-old morbidly obese female, came in with acute pancreatitis, gallstone induced. Lipase 1833, amylase 906. Amylase and lipase completely resolved. The patient also had elevated liver enzymes; AST 117, ALT 577. The patient had acute gallstone pancreatitis. The patient was stable. Once the pancreas was improving, the patient underwent laparoscopic cholecystectomy, done by Dr. Oleg Rivera. The patient postoperatively stable. She did have surgery on December 10, 2019 and now today, the patient is stable, tolerated her diet and she will go home today. She will follow up with Dr. Oleg Rivera in approximately 1-week for postoperative care. She will follow up with her family physician, Dr. Bebeto Del Rosario in approximately 1-2 weeks. The patient is otherwise stable, discharged home. Resume home medication and follow up as instructed. DIET: [place] diet. ACTIVITY: As tolerated. FOLLOWUP: As instructed. MD DARIO Waddell/NORAL /[id number]
== END 2019-12-11 20:00 | disposition home or self-care (01) | DRG 417 ==
LOC: ER 11:12 → ERHOLD 15:31 → MED/SURG2 18:10
PROVIDERS: ADMIT Internal Medicine; ATTEND Internal Medicine
PROC: 0FT44ZZ Resection of Gallbladder, Percutaneous Endoscopic Approach (ICD-10-PCS; principal; 2019-12-10 11:56)
DX: K80.10 Calculus of gallbladder with chronic cholecystitis without obstruction (principal); K85.10 Biliary acute pancreatitis without necrosis or infection; Z68.44 Body mass index [BMI] 60.0-69.9, adult; E66.01 Morbid (severe) obesity due to excess calories
CPT/HCPCS: 36415; 71045; 74177; 76705; 80053; 81001; 82150; 83690; 84702; 85025; 87086; 87635; 88304; 99284; C1766; J0330; J0461; J1100; J1885; J2001; J2270; J2405; J2543; J2710; J2765; J7030; J7121; Q9967